=== PATIENT | female | born 1980 | race Two or more races ===

== ENCOUNTER 2018-12-17 11:55 | Emergency (ER) | payer BC ==
[~2018-12-17] VITALS: Ht 170.2 cm; Wt 63.5 kg
[2018-12-17 13:39] LABS: Basophils # (auto) 0 uL; Basophils % (auto) 0.4 % (0.0-2.0); Eosinophils # (auto) 0.1 uL; Eosinophils % (auto) 1.4 % (0.0-7.0); Hematocrit 40.7 % (36.0-46.0); Hemoglobin 13.7 g/dL (12.2-16.2); Lymphocytes # (auto) 2.1 uL; Lymphocytes % (auto) 37.8 % (10.0-50.0); Mean Corpuscular Hemoglobin 30.9 pg (28.0-32.0); Mean Corpuscular Hgb Conc. 33.5 g/dL (32.0-36.0); Mean Corpuscular Volume 92.1 fL (80.0-100.0); Monocytes # (auto) 0.5 uL; Monocytes % (auto) 8.6 % (0.0-12.0); Neutrophils # (auto) 2.9 uL; Neutrophils % (auto) 51.8 % (37.0-80.0); Nucleated Red Blood Cells % 0.1 %; Platelet Count (auto) 187 10^3/uL (140-450); Red Blood Cells 4.42 10^6/uL (4.0-5.20); Red Cell Distribution Width 13.8 % (11.8-14.3); White Blood Cell 5.6 10^3/uL (4.4-10.8)
[2018-12-17 13:40] LABS: Urine Bacteria FEW /hpf (None Seen); Urine Blood Negative /uL (Negative); Urine Specific Gravity 1.016 (1.001-1.035); Urine WBC 2 /hpf (0 - 5)
[2018-12-17 14:01] LABS: Albumin 3.8 g/dL (3.4-5.0); Calcium 9.4 mg/dL (8.5-10.1)
[2018-12-17 14:06] LABS: BUN/Creatinine Ratio 26.2; Bilirubin, Total 0.4 mg/dL (0.2-1.0); Total Protein 7.4 g/dL (6.4-8.2)
[2018-12-17] MEDS ORDERED: ONDANSETRON HCL 4 MG/2 ML VIAL IV ONE (15:00)
[2018-12-17] MEDS ORDERED: MORPHINE SULF INJ 2 MG/ML SYRINGE 1ML IV ONE (15:00)
[2018-12-17 18:37] VITALS: BP 125/80
== END 2018-12-17 20:07 | disposition home or self-care (01) ==
LOC: ER 11:55
DX: R10.32 Left lower quadrant pain (principal)
CPT/HCPCS: 36415; 74176; 76856; 80053; 81001; 81025; 85025; 96374; 96375; 99284; J2270; J2405

== ENCOUNTER 2020-02-16 05:07 | Inpatient (IN) | payer BC, MEDICAID ==
[~2020-02-16] VITALS: Ht 162.6 cm; Wt 78.7 kg
[2020-02-16] MEDS ORDERED: ACETAMINOPHEN 325 MG TAB PO ONE (05:30)
[2020-02-16] MEDS ORDERED: SODIUM CHLORIDE 0.9% 1,000 ML IV ONE (06:30)
[2020-02-16 07:11] LABS: Basophils # (auto) 0 10 ^3/uL (0-0.2); Basophils % (auto) 0.1 % (0.0-2.0); Eosinophils # (auto) 0 10 ^3/uL (0-0.8); Hematocrit 36.9 % (36.0-46.0); Hemoglobin 12.4 g/dL (12.2-16.2); Lymphocytes # (auto) 0.5 10 ^3/uL (0.4-5.4); Lymphocytes % (auto) 11.5 % (10.0-50.0); Mean Corpuscular Hemoglobin 29.4 pg (28.0-32.0); Mean Corpuscular Hgb Conc. 33.6 g/dL (32.0-36.0); Mean Corpuscular Volume 87.5 fL (80.0-100.0); Monocytes # (auto) 0.1 10 ^3/uL (0-1.3); Monocytes % (auto) 2.5 % (0.0-12.0); Neutrophils # (auto) 4.1 10 ^3/uL (1.6-8.6); Neutrophils % (auto) 85.9 % (37.0-80.0); Platelet Count (auto) 139 10^3/uL (140-450); Red Blood Cells 4.22 10^6/uL (4.0-5.20); Red Cell Distribution Width 14.3 % (11.8-14.3); White Blood Cell 4.7 10^3/uL (4.4-10.8)
[2020-02-16 07:20] LABS: Albumin 3.2 g/dL (3.4-5.0); Calcium 8.3 mg/dL (8.5-10.1); Potassium 3.4 mmol/L (3.5-5.1)
[2020-02-16 07:23] LABS: BUN/Creatinine Ratio 12.1; Bilirubin, Total 0.3 mg/dL (0.2-1.0); Total Protein 7.1 g/dL (6.4-8.2)
[2020-02-16 07:32] LABS: INR 0.97 (0.9-1.15); Partial Thromboplastin Time 32.8 sec (23.0-31.2)
[2020-02-16 08:15] LABS: Urine Bacteria MANY /hpf (None Seen); Urine Blood Negative /uL (Negative); Urine Specific Gravity 1.007 (1.001-1.035); Urine WBC 3 /hpf (0 - 5)
[2020-02-16] MEDS ORDERED: ASCORBIC ACID 500 MG TAB PO ONE (09:45)
[2020-02-16] MEDS ORDERED: FAMOTIDINE 20 MG TAB PO ONE (09:45)
[2020-02-16] MEDS ORDERED: DexAMETHasone SOD PHOS 10MG/1ML VIAL INJ IV ONE (09:45)
[2020-02-16] MEDS ORDERED: AZITHROMYCIN 500MG/ 250ML 250 ML IV ONE (09:45)
[2020-02-16] MEDS ORDERED: cefTRIAXone 1GM/50ML D5W 50 ML IV ONE (09:45)
[2020-02-16] MEDS ORDERED: ZINC SULFATE 220mg CAP or TAB PO ONE (09:45)
[2020-02-16] MEDS: ERGOCALCIFEROL 50,000 UNIT(1.25MG) CAP PO SCH (11:21)
[2020-02-16] MEDS ORDERED: NITROGLYCERIN 0.4 MG SL TAB SL PRN (15:30)
[2020-02-16] MEDS ORDERED: MORPHINE SULF INJ 2 MG/ML SYRINGE 1ML IV PRN (15:30)
[2020-02-16 15:56] LABS: Magnesium 2.3 mg/dL (1.6-2.6)
[2020-02-16 16:04] LABS: CRP High Sensitivity 7.26 mg/dL (< 0.3)
[2020-02-16 16:20] LABS: Beta HCG, Quantitative < 1 mlU/mL (1-3); Thyroid Stimulating Hormone 1.83 uIU/mL (0.358-3.74)
[2020-02-16 17:14] VITALS: BP 115/68
[2020-02-16] MEDS: guaiFENesin-CODEINE Liq 5 ML UD GT PRN (18:36)
[2020-02-16 20:00] VITALS: BP 114/72
[2020-02-16] MEDS: ACETAMINOPHEN 500 MG TAB PO PRN (21:08)
[2020-02-16] MEDS: DOXYCYCLINE 100MG/250ML 250 ML IV SCH (21:57)
[2020-02-16 22:00] VITALS: BP 114/72
[2020-02-16] MEDS: BUDESONIDE (INHALATION) 180 MCG IH IN SCH (22:00)
[2020-02-16] MEDS: ALBUTEROL SULF HFA 90MCG INH 200DOSE IN SCH (22:00)
[2020-02-16 22:36] VITALS: BP 115/68
[2020-02-17] VITALS (8 sets, daily range): BP systolic 107–120; BP diastolic 58–78
[2020-02-17 07:03] LABS: Basophils # (auto) 0 10 ^3/uL (0-0.2); Basophils % (auto) 0.1 % (0.0-2.0); Eosinophils # (auto) 0 10 ^3/uL (0-0.8); Hematocrit 36.5 % (36.0-46.0); Hemoglobin 12.2 g/dL (12.2-16.2); Lymphocytes # (auto) 0.5 10 ^3/uL (0.4-5.4); Lymphocytes % (auto) 9.7 % (10.0-50.0); Mean Corpuscular Hemoglobin 29.5 pg (28.0-32.0); Mean Corpuscular Hgb Conc. 33.5 g/dL (32.0-36.0); Mean Corpuscular Volume 87.9 fL (80.0-100.0); Monocytes # (auto) 0.2 10 ^3/uL (0-1.3); Monocytes % (auto) 3.5 % (0.0-12.0); Neutrophils # (auto) 4.9 10 ^3/uL (1.6-8.6); Neutrophils % (auto) 86.7 % (37.0-80.0); Platelet Count (auto) 157 10^3/uL (140-450); Red Blood Cells 4.15 10^6/uL (4.0-5.20); Red Cell Distribution Width 14.5 % (11.8-14.3); White Blood Cell 5.6 10^3/uL (4.4-10.8)
[2020-02-17 07:18] LABS: Albumin 2.7 g/dL (3.4-5.0); Calcium 8.8 mg/dL (8.5-10.1); Potassium 3.7 mmol/L (3.5-5.1)
[2020-02-17 07:19] LABS: BUN/Creatinine Ratio 14.3
[2020-02-17] MEDS: ALBUTEROL SULF HFA 90MCG INH 200DOSE IN SCH ×3 (07:24→23:21)
[2020-02-17 07:32] LABS: Bilirubin, Total 0.3 mg/dL (0.2-1.0); Total Protein 6.9 g/dL (6.4-8.2)
[2020-02-17] MEDS: DexAMETHasone SOD PHOS 10MG/1ML VIAL INJ IV SCH (08:33)
[2020-02-17] MEDS: ZINC SULFATE 220mg CAP or TAB PO SCH (08:34)
[2020-02-17] MEDS: CHOLECALCIFEROL (VITD3) 2,000 UNIT CAP PO SCH (08:34)
[2020-02-17] MEDS: ASCORBIC ACID 1,000 MG TAB PO SCH (08:34)
[2020-02-17] MEDS: DOXYCYCLINE 100MG/250ML 250 ML IV SCH ×2 (08:34→21:22)
[2020-02-17] MEDS: guaiFENesin-CODEINE Liq 5 ML UD GT PRN ×3 (08:56→23:43)
[2020-02-17] MEDS: BUDESONIDE (INHALATION) 180 MCG IH IN SCH ×2 (10:00→23:21)
[2020-02-17] MEDS ORDERED: ENOXAPARIN SOD 40 MG/0.4 ML SYRINGE SC SCH (10:00)
[2020-02-17] MEDS ORDERED: REMDESIVIR 200 MG in NS 210ml LOADING DOSE ADULT IV ONE (17:00)
[2020-02-17] MEDS: ACETAMINOPHEN 500 MG TAB PO PRN (20:46)
[2020-02-17] MEDS: ENOXAPARIN SOD 80 MG/0.8ML SYRINGE SC SCH (21:22)
[2020-02-18] VITALS (8 sets, daily range): BP systolic 105–122; BP diastolic 66–83
[2020-02-18] MEDS: guaiFENesin-CODEINE Liq 5 ML UD GT PRN ×3 (07:28→21:53)
[2020-02-18] MEDS: ZINC SULFATE 220mg CAP or TAB PO SCH (08:48)
[2020-02-18] MEDS: ASCORBIC ACID 1,000 MG TAB PO SCH (08:48)
[2020-02-18] MEDS: ENOXAPARIN SOD 80 MG/0.8ML SYRINGE SC SCH ×2 (08:48→21:54)
[2020-02-18] MEDS: DexAMETHasone SOD PHOS 10MG/1ML VIAL INJ IV SCH (08:48)
[2020-02-18] MEDS: DOXYCYCLINE 100MG/250ML 250 ML IV SCH ×2 (08:48→21:54)
[2020-02-18] MEDS: CHOLECALCIFEROL (VITD3) 2,000 UNIT CAP PO SCH (08:48)
[2020-02-18] MEDS: BUDESONIDE (INHALATION) 180 MCG IH IN SCH ×2 (10:00→22:16)
[2020-02-18 11:08] LABS: Albumin 2.6 g/dL (3.4-5.0); Calcium 8.6 mg/dL (8.5-10.1); Potassium 3.6 mmol/L (3.5-5.1)
[2020-02-18 11:14] LABS: Bilirubin, Total 0.3 mg/dL (0.2-1.0); Total Protein 6.7 g/dL (6.4-8.2)
[2020-02-18] MEDS: ALBUTEROL SULF HFA 90MCG INH 200DOSE IN SCH ×2 (14:34→22:16)
[2020-02-18] MEDS ORDERED: FUROSEMIDE 40 MG/4 ML VIAL IV ONE (17:00)
[2020-02-18] MEDS ORDERED: cefTRIAXone 1GM/50ML D5W 50 ML IV ONE (17:00)
[2020-02-18] MEDS ORDERED: POTASSIUM CHL 20 Meq TABLET PO ONE (17:00)
[2020-02-18] MEDS: REMDESIVIR 100mg in NS 230ml DAILYx4DAYS (NO VENT) IV SCH (17:23)
[2020-02-19 05:00] VITALS: BP 111/77
[2020-02-19 06:41] LABS: Potassium 3.3 mmol/L (3.5-5.1)
[2020-02-19] MEDS: ALBUTEROL SULF HFA 90MCG INH 200DOSE IN SCH ×3 (06:54→22:31)
[2020-02-19] MEDS: BUDESONIDE (INHALATION) 180 MCG IH IN SCH ×2 (06:54→22:31)
[2020-02-19 07:02] LABS: Albumin 2.8 g/dL (3.4-5.0); BUN/Creatinine Ratio 35.6; Bilirubin, Total 0.4 mg/dL (0.2-1.0); Calcium 8.5 mg/dL (8.5-10.1); Total Protein 6.7 g/dL (6.4-8.2)
[2020-02-19 08:41] VITALS: BP 104/73
[2020-02-19] MEDS: DexAMETHasone SOD PHOS 10MG/1ML VIAL INJ IV SCH (08:59)
[2020-02-19] MEDS: ZINC SULFATE 220mg CAP or TAB PO SCH (08:59)
[2020-02-19] MEDS: cefTRIAXone 1GM/50ML D5W 50 ML IV SCH (08:59)
[2020-02-19] MEDS: ASCORBIC ACID 1,000 MG TAB PO SCH (09:00)
[2020-02-19] MEDS: CHOLECALCIFEROL (VITD3) 2,000 UNIT CAP PO SCH (09:00)
[2020-02-19] MEDS: ENOXAPARIN SOD 80 MG/0.8ML SYRINGE SC SCH ×2 (09:01→21:51)
[2020-02-19] MEDS: FUROSEMIDE 40 MG/4 ML VIAL IV SCH (09:15)
[2020-02-19] MEDS: guaiFENesin-CODEINE Liq 5 ML UD GT PRN ×2 (09:16→21:52)
[2020-02-19] MEDS ORDERED: POTASSIUM CHL 20 Meq TABLET PO SCH (10:00)
[2020-02-19] MEDS: DOXYCYCLINE 100MG/250ML 250 ML IV SCH ×2 (11:39→21:51)
[2020-02-19 12:16] VITALS: BP 109/72
[2020-02-19] MEDS ORDERED: POTASSIUM EFFERVESENT TAB 25 MEQ PO ONE (13:45)
[2020-02-19] MEDS: REMDESIVIR 100mg in NS 230ml DAILYx4DAYS (NO VENT) IV SCH (16:45)
[2020-02-19 17:26] VITALS: BP 118/76
[2020-02-19 21:31] VITALS: BP 118/76
[2020-02-19 22:16] VITALS: BP 112/68
[2020-02-20] VITALS (8 sets, daily range): BP systolic 101–124; BP diastolic 65–84
[2020-02-20] MEDS: guaiFENesin-CODEINE Liq 5 ML UD GT PRN ×2 (02:48→21:04)
[2020-02-20 06:46] LABS: Calcium 8.5 mg/dL (8.5-10.1); Potassium 3.4 mmol/L (3.5-5.1)
[2020-02-20 06:50] LABS: Bilirubin, Total 0.4 mg/dL (0.2-1.0); Total Protein 6.9 g/dL (6.4-8.2)
[2020-02-20] MEDS: ALBUTEROL SULF HFA 90MCG INH 200DOSE IN SCH ×3 (08:13→22:27)
[2020-02-20] MEDS: BUDESONIDE (INHALATION) 180 MCG IH IN SCH ×2 (08:14→22:27)
[2020-02-20] MEDS: cefTRIAXone 1GM/50ML D5W 50 ML IV SCH (09:22)
[2020-02-20] MEDS: ASCORBIC ACID 1,000 MG TAB PO SCH (09:23)
[2020-02-20] MEDS: POTASSIUM CHL 20 Meq TABLET PO SCH (09:23)
[2020-02-20] MEDS: DOXYCYCLINE 100 MG TAB/CAP PO SCH ×2 (09:23→21:04)
[2020-02-20] MEDS: ZINC SULFATE 220mg CAP or TAB PO SCH (09:23)
[2020-02-20] MEDS: ENOXAPARIN SOD 80 MG/0.8ML SYRINGE SC SCH ×2 (09:24→21:04)
[2020-02-20] MEDS: CHOLECALCIFEROL (VITD3) 2,000 UNIT CAP PO SCH (09:24)
[2020-02-20] MEDS: FUROSEMIDE 40 MG/4 ML VIAL IV SCH (09:25)
[2020-02-20] MEDS: DexAMETHasone SOD PHOS 10MG/1ML VIAL INJ IV SCH (10:00)
[2020-02-20] MEDS: REMDESIVIR 100mg in NS 230ml DAILYx4DAYS (NO VENT) IV SCH (17:23)
[2020-02-21 04:33] VITALS: BP 106/72
[2020-02-21 06:05] LABS: Potassium 3.5 mmol/L (3.5-5.1)
[2020-02-21 06:11] LABS: Calcium 8.7 mg/dL (8.5-10.1)
[2020-02-21 08:00] VITALS: BP 101/70
[2020-02-21 09:00] VITALS: BP 101/70
[2020-02-21] MEDS: ALBUTEROL SULF HFA 90MCG INH 200DOSE IN SCH ×3 (09:42→22:47)
[2020-02-21] MEDS: BUDESONIDE (INHALATION) 180 MCG IH IN SCH ×2 (09:42→22:46)
[2020-02-21] MEDS: cefTRIAXone 1GM/50ML D5W 50 ML IV SCH (10:37)
[2020-02-21] MEDS: DexAMETHasone SOD PHOS 10MG/1ML VIAL INJ IV SCH (10:37)
[2020-02-21] MEDS: FUROSEMIDE 40 MG/4 ML VIAL IV SCH (10:39)
[2020-02-21] MEDS: POTASSIUM CHL 20 Meq TABLET PO SCH (10:39)
[2020-02-21] MEDS: ZINC SULFATE 220mg CAP or TAB PO SCH (10:39)
[2020-02-21] MEDS: DOXYCYCLINE 100 MG TAB/CAP PO SCH ×2 (10:39→21:11)
[2020-02-21] MEDS: CHOLECALCIFEROL (VITD3) 2,000 UNIT CAP PO SCH (10:40)
[2020-02-21] MEDS: ENOXAPARIN SOD 80 MG/0.8ML SYRINGE SC SCH (10:40)
[2020-02-21] MEDS: ASCORBIC ACID 1,000 MG TAB PO SCH (10:40)
[2020-02-21 12:56] VITALS: BP 110/72
[2020-02-21 17:00] VITALS: BP 115/71
[2020-02-21] MEDS: REMDESIVIR 100mg in NS 230ml DAILYx4DAYS (NO VENT) IV SCH (17:15)
[2020-02-21] MEDS: ENOXAPARIN SOD 40 MG/0.4 ML SYRINGE SC SCH (21:11)
[2020-02-21 21:47] VITALS: BP 114/72
[2020-02-22 05:41] VITALS: BP 105/64
[2020-02-22] MEDS: ALBUTEROL SULF HFA 90MCG INH 200DOSE IN SCH ×4 (07:38→21:55)
[2020-02-22] MEDS: BUDESONIDE (INHALATION) 180 MCG IH IN SCH ×2 (07:38→21:54)
[2020-02-22 08:00] VITALS: BP 101/70
[2020-02-22 08:38] VITALS: BP 91/73
[2020-02-22] MEDS: DexAMETHasone SOD PHOS 10MG/1ML VIAL INJ IV SCH (09:52)
[2020-02-22] MEDS: cefTRIAXone 1GM/50ML D5W 50 ML IV SCH (09:52)
[2020-02-22] MEDS: ZINC SULFATE 220mg CAP or TAB PO SCH (09:52)
[2020-02-22] MEDS: POTASSIUM CHL 20 Meq TABLET PO SCH (09:53)
[2020-02-22] MEDS: CHOLECALCIFEROL (VITD3) 2,000 UNIT CAP PO SCH (09:53)
[2020-02-22] MEDS: DOXYCYCLINE 100 MG TAB/CAP PO SCH ×2 (09:53→21:30)
[2020-02-22] MEDS: ENOXAPARIN SOD 40 MG/0.4 ML SYRINGE SC SCH ×2 (09:53→21:30)
[2020-02-22] MEDS: ASCORBIC ACID 1,000 MG TAB PO SCH (09:53)
[2020-02-22 13:18] VITALS: BP 110/64
[2020-02-22 16:33] VITALS: BP 119/70
[2020-02-22] MEDS: guaiFENesin-CODEINE Liq 5 ML UD GT PRN (20:04)
[2020-02-22 21:45] VITALS: BP 116/63
[2020-02-23] VITALS (7 sets, daily range): BP systolic 102–119; BP diastolic 69–74
[2020-02-23] MEDS: ALBUTEROL SULF HFA 90MCG INH 200DOSE IN SCH ×3 (07:29→21:27)
[2020-02-23] MEDS: BUDESONIDE (INHALATION) 180 MCG IH IN SCH ×2 (07:30→21:27)
[2020-02-23] MEDS: cefTRIAXone 1GM/50ML D5W 50 ML IV SCH (09:14)
[2020-02-23] MEDS: DexAMETHasone SOD PHOS 10MG/1ML VIAL INJ IV SCH (09:15)
[2020-02-23] MEDS: ASCORBIC ACID 1,000 MG TAB PO SCH (09:16)
[2020-02-23] MEDS: POTASSIUM CHL 20 Meq TABLET PO SCH (09:16)
[2020-02-23] MEDS: ZINC SULFATE 220mg CAP or TAB PO SCH (09:16)
[2020-02-23] MEDS: CHOLECALCIFEROL (VITD3) 2,000 UNIT CAP PO SCH (09:16)
[2020-02-23] MEDS: ENOXAPARIN SOD 40 MG/0.4 ML SYRINGE SC SCH ×2 (09:17→21:45)
[2020-02-23] MEDS: ERGOCALCIFEROL 50,000 UNIT(1.25MG) CAP PO SCH (12:48)
[2020-02-23] MEDS: guaiFENesin-CODEINE Liq 5 ML UD GT PRN (21:48)
[2020-02-24 05:00] VITALS: BP 102/68
[2020-02-24 05:59] LABS: Hematocrit 39.1 % (36.0-46.0); Hemoglobin 13.1 g/dL (12.2-16.2); Mean Corpuscular Hemoglobin 29.3 pg (28.0-32.0); Mean Corpuscular Hgb Conc. 33.4 g/dL (32.0-36.0); Mean Corpuscular Volume 87.6 fL (80.0-100.0); Platelet Count (auto) 363 10^3/uL (140-450); Red Blood Cells 4.46 10^6/uL (4.0-5.20); Red Cell Distribution Width 14.3 % (11.8-14.3); White Blood Cell 7.5 10^3/uL (4.4-10.8)
[2020-02-24 06:04] LABS: Basophils % (manual) 0 (0.0-2.0); Blast Cells 0; Eosinophils % (manual) 0 (0-7); Metamyelocytes % 0; Promyelocytes % 0; Reactive Lymphocytes 0
[2020-02-24 06:15] LABS: Albumin 3.1 g/dL (3.4-5.0); BUN/Creatinine Ratio 26.4; Calcium 9.6 mg/dL (8.5-10.1); Magnesium 2.4 mg/dL (1.6-2.6); Potassium 4.2 mmol/L (3.5-5.1)
[2020-02-24 06:17] LABS: Bilirubin, Total 0.4 mg/dL (0.2-1.0); Phosphorus 4.7 mg/dL (2.5-4.90); Total Protein 6.8 g/dL (6.4-8.2)
[2020-02-24 06:18] LABS: INR 1.03 (0.9-1.15)
[2020-02-24 06:40] LABS: Band Neutrophils % (manual) 2; Lymphocytes % (manual) 25 (10.0-50.0); Monocytes % (manual) 10 (0-12); Myelocytes % 1
[2020-02-24] MEDS: ALBUTEROL SULF HFA 90MCG INH 200DOSE IN SCH ×2 (07:40→14:52)
[2020-02-24] MEDS: BUDESONIDE (INHALATION) 180 MCG IH IN SCH (07:41)
[2020-02-24 08:00] VITALS: BP 119/71
[2020-02-24] MEDS: CHOLECALCIFEROL (VITD3) 2,000 UNIT CAP PO SCH (08:54)
[2020-02-24] MEDS: ASCORBIC ACID 1,000 MG TAB PO SCH (08:54)
[2020-02-24] MEDS: DexAMETHasone SOD PHOS 10MG/1ML VIAL INJ IV SCH (08:54)
[2020-02-24] MEDS: POTASSIUM CHL 20 Meq TABLET PO SCH (08:54)
[2020-02-24] MEDS: cefTRIAXone 1GM/50ML D5W 50 ML IV SCH (08:54)
[2020-02-24] MEDS: ZINC SULFATE 220mg CAP or TAB PO SCH (08:54)
[2020-02-24] MEDS: ENOXAPARIN SOD 40 MG/0.4 ML SYRINGE SC SCH (08:55)
[2020-02-24 09:00] VITALS: BP 119/71
[2020-02-24 12:52] VITALS: BP 112/70
[2020-02-24 17:00] VITALS: BP 107/59
[2020-02-24] MEDS ORDERED: POTA10TA51 PO (17:27)
[2020-02-24] MEDS ORDERED: AZIT500T66 PO (17:27)
[2020-02-24] MEDS ORDERED: FURO1TAB33 PO (17:27)
[2020-02-24] MEDS ORDERED: FOLITAB22 PO (17:27)
[2020-02-24] MEDS ORDERED: THIA50CA PO (17:27)
[2020-02-24] MEDS ORDERED: DEX4T PO (17:27)
[2020-02-24 17:46] VITALS: BP 107/59
== END 2020-02-24 18:55 | disposition home or self-care (01) | DRG 720 ==
LOC: ER 05:07 → TELE-EAST 05:08
PROVIDERS: ADMIT Nurse Practitioner Acute Care; ATTEND Internal Medicine Nephrology
PROC: XW13325 Transfusion of Convalescent Plasma (Nonautologous) into Peripheral Vein, Percutaneous Approach, New Technology Group 5 (ICD-10-PCS; principal; 2020-02-17)
PROC: XW033E5 Introduction of Remdesivir Anti-infective into Peripheral Vein, Percutaneous Approach, New Technology Group 5 (ICD-10-PCS; 2020-02-17)
DX: A41.89 Other specified sepsis (principal); U07.1 COVID-19; J96.01 Acute respiratory failure with hypoxia; J12.89 Other viral pneumonia; E66.9 Obesity, unspecified; E87.6 Hypokalemia; R65.20 Severe sepsis without septic shock; E88.09 Other disorders of plasma-protein metabolism, not elsewhere classified; Z68.29 Body mass index [BMI] 29.0-29.9, adult
CPT/HCPCS: 36415; 71045; 80048; 80053; 81001; 82728; 83036; 83605; 83615; 83735; 84100; 84443; 84702; 85007; 85025; 85027; 85379; 85610; 85730; 86141; 86850; 86900; 86901; 87040; 87426; 87804; 94640; 96365; 96366; 96368; G0378; J0696; J1100; J3490